=== PATIENT | male | born 1945 | race Caucasian/White ===

== ENCOUNTER 2021-07-10 14:31 | Emergency (ER) | payer MEDICARE, OTHER ==
[~2021-07-10] VITALS: Ht 182.9 cm; Wt 105.0 kg
[2021-07-10 14:34] VITALS: BP 130/71
[2021-07-10 15:57] LABS: BASOPHILS % 0.2 % (0.0-2.0); HEMATOCRIT. 44.8 % (42.0-52.0); LYMPHOCYTES % 8.3 % (20.0-50.0); MEAN CORPUSCULAR HEMOGLOBIN 29.7 pg (28.0-32.0); MEAN CORPUSCULAR VOLUME 88.6 fL (80.0-94.0); MEAN PLATELET VOLUME 8.7 fl (7.4-10.4); MONOCYTES % 3.9 % (2.0-8.0); NEUTROPHILS % 87.6 % (40.0-76.0); PLATELET 159 x1000/uL (130-400); RED BLOOD CELL COUNT 5.06 mill/uL (4.7-6.1); RED CELL DISTRIBUTION WIDTH 14.2 % (11.6-14.6)
[2021-07-10 16:02] LABS: CHLORIDE 103 mEq/L (98-107)
[2021-07-10] MEDS ORDERED: CEPH500C2 MT (16:25)
[2021-07-10] MEDS: CEFTRIAXONE SODIUM 1 G/VIAL IM ONE (17:28)
[2021-07-10] MEDS: IBUPROFEN 400MG TABLET PO ONE (17:28)
[2021-07-10] MEDS: ACETAMINOPHEN 325MG TABLET PO ONE (17:28)
== END 2021-07-10 18:35 | disposition home or self-care (01) ==
LOC: ER 14:31
DX: L03.115 Cellulitis of right lower limb (principal)
CPT/HCPCS: 36415; 80053; 85025; 93971; 96372; 99284; J0696

== ENCOUNTER 2021-08-01 12:18 | Emergency (ER) | payer MEDICARE, OTHER ==
[~2021-08-01] VITALS: Ht 182.9 cm; Wt 91.0 kg
[~2021-08-01 12:18] MED LIST: CEPH500C2 MT
[2021-08-01 12:34] VITALS: BP 146/73
[2021-08-01] MEDS ORDERED: ACETAMINOPHEN 500MG TABLET PO ONE (13:00)
[2021-08-01] MEDS ORDERED: DOXYCYCLINE HYCLATE 100MG CAPSULE PO ONE (13:00)
[2021-08-01] MEDS ORDERED: ACET-2708 MT (14:12)
[2021-08-01] MEDS ORDERED: DOXY-326 MT (14:12)
== END 2021-08-01 14:53 | disposition home or self-care (01) ==
LOC: ER 12:18
DX: L03.115 Cellulitis of right lower limb (principal)
CPT/HCPCS: 93971; 99284